=== PATIENT | male | born 1945 | race Hispanic/Latino ===

== ENCOUNTER 2016-10-07 19:03 | Emergency (ER) | payer MEDICARE ==
[2016-10-07 19:11] VITALS: BMI 33.6
[2016-10-07 19:14] VITALS: RESP 18; TEMP 98.4
[2016-10-07] MEDS ORDERED: Sodium Chloride 0.9% 1,000 ML IV STA (19:32)
--- NOTE | 2016-10-07 19:33 | ED PDOC ---
Arrival/HPI <MohitMino - Last Filed: 10/07/16 20:04> - General Historian: Patient - History of Present Illness Time/Duration: < week Quality: Aching Context: Home <Jamar Watters - Last Filed: 10/15/16 21:40> - General Chief Complaint: Back Pain Time Seen by Provider: 10/07/16 19:20 - History of Present Illness Narrative History of Present Illness (Text): 10/07/16 19:30 This 70 yo male with pmh leukocytosis, renal stones, presents to this ED c/o left flank pain x 2 days. Pain radiates downwards. Denies testicular pain, sob , cp, hematuria, or abnormal gait. Denies other complains. (Jamar Watters) Past Medical History - Provider Review Nursing Documentation Reviewed: Yes - Infectious Disease Hx of Infectious Diseases: None - Tetanus Immunization Tetanus Immunization: Unknown - Cardiac Hx Cardiac Disorders: Yes Hx Hypertension: Yes - Pulmonary Hx Respiratory Disorders: No - Neurological Hx Neurological Disorder: No - Renal Hx Renal Disorder: Yes Hx Kidney Stones: Yes (LITHOTRYPSY) - Endocrine/Metabolic Hx Endocrine Disorders: No - Hematological/Oncological Hx Blood Disorders: No - Integumentary Hx Dermatological Disorder: Yes (RIGHT LEG PITTING EDEMA+1 WITH REDNESS,HOT, LEFT LEG EDEMA PITTING +2.) - Musculoskeletal/Rheumatological Hx Musculoskeletal Disorders: Yes Hx Arthritis: Yes Hx Falls: Yes Other/Comment: LEFT HIP SURGERY,RUPTURED RIGHT ACHILLES TENDON REPAIR - Gastrointestinal Hx Gastrointestinal Disorders: Yes (GASTROENTERITIS) - Genitourinary/Gynecological Hx Genitourinary Disorders: No - Psychiatric Hx Depression: No Hx Emotional Abuse: No Hx Physical Abuse: No Hx Substance Use: No - Surgical History Hx Orthopedic Surgery: Yes (L HIP, REPAIR OF RUPTURED ACHILLES TENDON) - Anesthesia Hx Anesthesia: Yes Hx Anesthesia Reactions: No Hx Malignant Hyperthermia: No - Suicidal Assessment Feels Threatened In Home Enviroment: No <Jamar Watters - Last Filed: 10/15/16 21:40> Family/Social History - Physician Review Nursing Documentation Reviewed: Yes Family/Social History: No Known Family HX Smoking Status: Former Smoker Hx Alcohol Use: Yes (SOCIALLY) Frequency of alcohol use: Socially Hx Substance Use: No Hx Substance Use Treatment: No <Jamar Watters - Last Filed: 10/15/16 21:40> Allergies/Home Meds <MohitMino - Last Filed: 10/07/16 20:04> <Jamar Watters Jovi - Last Filed: 10/15/16 21:40> Allergies/Adverse Reactions: Allergies Penicillins Allergy (Verified 03/08/16 11:44) RASH shellfish derived Adverse Reaction (Verified 03/08/16 11:44) SWELLING Home Medications: Home Meds Medication Instructions Recorded Confirmed Eplerenone [Inspra] 50 mg PO DAILY 07/19/15 10/07/16 Diltiazem HCl [Matzim LA] 420 mg PO DAILY 03/08/16 10/07/16 Telmisartan/Hydrochlorothiazid 1 tab PO DAILY 03/08/16 10/07/16 [Telmisartan-Hydrochlorothiazide 25 mg-80 mg] Cyanocobalamin/Salcaprozat Sod 1,000 mcg PO DAILY 10/07/16 10/07/16 [Eligen B12 Tablet] Folic Acid [Folic Acid] 1 tab PO DAILY 10/07/16 10/07/16 Review of Systems - Review of Systems Constitutional: Normal. absent: Fatigue, Weight Change, Fevers Eyes: Normal ENT: Normal Respiratory: Normal Cardiovascular: Normal Gastrointestinal: Abdominal Pain (flank pain) Genitourinary Male: Normal Musculoskeletal: Normal Skin: Normal Neurological: Normal Endocrine: Normal Hemo/Lymphatic: Normal Psychiatric: Normal <Jamar Watters Jovi - Last Filed: 10/15/16 21:40> Physical Exam Temperature: Afebrile Blood Pressure: Normal Pulse: Regular Respiratory Rate: Normal Appearance: Positive for: Well-Appearing, Non-Toxic, Comfortable Pain Distress: None Mental Status: Positive for: Alert and Oriented X 3 - Systems Exam Head: Present: Atraumatic, Normocephalic Pupils: Present: PERRL Extroacular Muscles: Present: EOMI Conjunctiva: Present: Normal Mouth: Present: Moist Mucous Membranes Neck: Present: Normal Range of Motion Respiratory/Chest: Present: Clear to Auscultation, Good Air Exchange. No: Respiratory Distress, Accessory Muscle Use Cardiovascular: Present: Regular Rate and Rhythm, Normal S1, S2. No: Murmurs Abdomen: Present: Normal Bowel Sounds. No: Tenderness, Distention, Peritoneal Signs, Rebound, Guarding, McBurney's Point Tender Back: Present: Normal Inspection Upper Extremity: Present: Normal Inspection, Normal ROM, Neurovascularly Intact , Capillary Refill < 2s. No: Cyanosis, Edema, NORMAL PULSES Lower Extremity: Present: Normal Inspection, Normal ROM, Neurovascularly Intact , Capillary Refill < 2 s. No: Edema Neurological: Present: GCS=15, CN II-XII Intact, Speech Normal Skin: Present: Warm, Dry, Normal Color. No: Rashes Psychiatric: Present: Alert, Oriented x 3, Normal Insight, Normal Concentration <Jamar Watters - Last Filed: 10/15/16 21:40> Vital Signs Temp Pulse Resp BP Pulse Ox 10/07/16 23:51 89 18 123/72 99 10/07/16 19:14 98.4 F 90 18 124/71 96 Medical Decision Making <Mino Rueda - Last Filed: 10/07/16 20:04> Re-evaluation Time: 23:27 Reassessment Condition: Re-examined, Improved - Lab Interpretations I have reviewed the lab results: Yes Interpretation: No clinic. lab abnormalty <Jamar Watters - Last Filed: 10/15/16 21:40> ED Course and Treatment: 10/07/16 23:18 I spoke with Jeevan Campos Urologist regarding patient c/o left flank pain. We reviewed ct scan and labs. CT scan demonstrates renal stones. I told Dr. Campos that patient prefers out-pt f/u. Patient has an appointment to see Urologist tomorrow morning. (Jamar Watters) - Lab Interpretations Microbiology Results: Microbiology Results 10/07/16 20:40 Urine,Clean Catch Urine Culture - Final No Growth (<1,000 CFU/ML) Lab Results: 10/07/16 19:55 10/07/16 19:55 Lab Results 10/07/16 20:45: Urine Color Yellow, Urine Appearance Clear, Urine pH 7.0, Ur Specific [place] 1.015, Urine Protein Negative, Urine Glucose (UA) Negative, Urine Ketones Negative, Urine Blood Trace-lysed H, Urine Nitrate Negative, Urine Bilirubin Negative, Urine Urobilinogen 0.2, Ur Leukocyte Esterase Small H , Urine RBC 1 - 3, Urine WBC 2 - 5 10/07/16 19:55: Sodium 139, Potassium 3.4 L, Chloride 100, Carbon Dioxide 27, Anion Gap 15, BUN 19, Creatinine 1.0, Est GFR ( Amer) > 60, Est GFR (Non- Af Amer) > 60, Random Glucose 90, Calcium 9.6, Total Bilirubin 0.4, AST 25, ALT 34, Alkaline Phosphatase 72, Total Protein 7.6, Albumin 4.2, Globulin 3.4, Albumin/Globulin Ratio 1.2 10/07/16 19:55: WBC 13.4 H D, RBC 4.74, Hgb 15.1, Hct 42.8, MCV 90.3, MCH 31.9, MCHC 35.3, RDW 13.0, Plt Count 271, MPV 9.7, Gran % 68.8 H, Lymph % (Auto) 18.0 L, [place] % (Auto) 9.8 H, Eos % (Auto) 2.7, Baso % (Auto) 0.7, Gran # 9.23 H, Lymph # 2.4, [place] # 1.3 H, Eos # 0.4, Baso # 0.09 - RAD Interpretation Narrative RAD Interpretations (Text): 10/07/16 22:43 [facility] Final Radiology Report Call: [phone] assistance Online chat: [email or web address] Patient Name: NELSON TORREZ I FINDINGS: Lower thorax: The bilateral lung bases are clear. ABDOMEN: Liver: No acute findings Gallbladder and bile ducts: The gallbladder is decompressed, with multiple calcified stones. No intraextrahepatic biliary ductal dilation. Pancreas: Limited evaluation secondary to the lack of intravenous contrast. Spleen: No acute findings. Adrenals: No acute findings. Kidneys and ureters: Left-sided hydronephrosis with extensive left renal calculi. The left ureter is decompressed. The right kidney and collecting system are unremarkable. PELVIS: Bladder: The bladder is moderately distended. Reproductive: No acute findings. Appendix: The appendix is not definitively visualized, however no pericecal inflammatory changes identified to suggest the presence of acute appendicitis. ABDOMEN and PELVIS: Stomach and bowel: Colonic diverticulosis, without inflammation. Peritoneum: No acute findings. Lymph nodes: Limited evaluation without intravenous contrast. Vasculature: No aortic aneurysm. Calcified atherosclerotic disease. Bones: No acute fracture. IMPRESSION: Left-sided hydronephrosis with extensive renal calculi, as detailed above. Cholelithiasis. Diverticulosis, without inflammation. Thank you for allowing us to participate in the care of your patient. Dictated and Authenticated by: Noreen Lomax MD 10/07/2016 10:33 PM Eastern Time ([place] & [place]) (Jamar Watters) Radiology Orders: 10/07/16 20:15 ABD & PELVIS W/O PO OR IV CONT [CT] Stat - Medication Orders Current Medication Orders: Discontinued Medications Sodium Chloride (Sodium Chloride 0.9%) 1,000 mls @ 999 mls/hr IV .Q1H1M STA Stop: 10/07/16 20:32 Last Admin: 10/07/16 20:18 Dose: 999 mls/hr Ketorolac Tromethamine (Toradol) 30 mg IVP STAT STA Stop: 10/07/16 19:33 Last Admin: 10/07/16 20:18 Dose: 30 mg Nitrofurantoin Macrocrystals (Macrobid) 100 mg PO STAT STA Stop: 10/07/16 23:29 Last Admin: 10/07/16 23:45 Dose: 100 mg - PA / [employer] / Resident Statement / has reviewed & agrees with the documentation as recorded. / has examined the patient and agrees with the treatment plan. <Mino Rueda - Last Filed: 10/07/16 20:04> Disposition/Present on Arrival <Mino Rueda - Last Filed: 10/07/16 20:04> - Present on Arrival Any Indicators Present on Arrival: No History of DVT/PE: No History of Uncontrolled Diabetes: No Urinary Catheter: No History of Decub. Ulcer: No History Surgical Site Infection Following: None - Disposition Have Diagnosis and Disposition been Completed?: Yes Disposition Time: 23:29 Patient Plan: Discharge <Jamar Watters - Last Filed: 10/15/16 21:40> - Disposition Diagnosis: Renal calculus Disposition: HOME/ ROUTINE Condition: GOOD Discharge Instructions (ExitCare): Kidney Stones (ED) Additional Instructions: Dr. Campos would like to see you tomorrow at 10:[address] [place] [address]. [place], [place]. Call Dr. Campos at [phone] before going to his office. Prescriptions: Nitrofurantoin Macrocrystals [Macrobid] 100 mg PO BID #20 cap oxyCODONE/Acetaminophen [Percocet 5/325 mg Tab] 1 ea PO TID PRN #12 tab PRN Reason: Pain, Severe (8-10) Referrals: Abundio Oropeza MD [Primary Care Provider] - Follow up with primary Jeevan Campos MD [Staff Provider] - Follow up with primary Forms: [employer] (Polish)
[2016-10-07 20:17] LABS: BASO # 0.09 K/mm3 (0.0-2.0); BASO % 0.7 % (0.0-3.0); EOS # 0.4 (0.0-0.7); EOS % 2.7 % (1.5-5.0); GRAN # 9.23 (1.4-6.5); GRAN % 68.8 % (50.0-68.0); HEMOGLOBIN 15.1 gm/dL (14.0-18.0); LYMPH # 2.4 (1.2-3.4); MEAN CELL VOLUME 90.3 fL (80.0-105.0); MEAN CORPUSCULAR HEMOGLOBIN 31.9 pg (25.0-35.0); MEAN CORPUSCULAR HGB CONC 35.3 g/dl (31.0-37.0); MEAN PLATELET VOLUME 9.7 fl (7.0-11.0); MONO # 1.3 (0.1-0.6); MONO % 9.8 % (1.0-6.0); PLATELET COUNT 271 10^3/uL (120.0-450.0); RBC 4.74 10^6/uL (3.5-6.1); WHITE BLOOD COUNT 13.4 10^3/ul (4.5-11.0)
[2016-10-07 20:27] LABS: ALB/GLOB RATIO 1.2 (1.1-1.8); ALBUMIN 4.2 g/dL (3.0-4.8); ALT/SGPT 34 U/L (7-56); AST/SGOT 25 U/L (15-59); BLOOD UREA NITROGEN 19 mg/dL (7-21); CALCIUM 9.6 mg/dL (8.4-10.5); GFR AFRICAN-AMERICAN > 60; GFR NON-AFRICAN AMERICAN > 60
[2016-10-07 20:55] LABS: URINE BILIRUBIN NEGATIVE (NEGATIVE); URINE BLOOD TRACE-LYSED (NEGATIVE); URINE GLUCOSE (UA) NEGATIVE (NEGATIVE); URINE LEUKOCYTE ESTERASE SMALL Leu/uL (NEGATIVE); URINE NITRATE NEGATIVE (NEGATIVE); URINE PROTEIN NEGATIVE mg/dL (<30 mg/dL); URINE UROBILINOGEN 0.2 E.U./dL (<1 E.U./dL)
[2016-10-07 21:02] LABS: URINE APPEARANCE CLEAR (CLEAR); URINE COLOR YELLOW (YELLOW)
--- NOTE | 2016-10-07 22:34 | CT ---
EXAM: CT Abdomen and Pelvis Without Intravenous Contrast CLINICAL HISTORY: 70 years old, male; Pain; Abdominal pain; Acute; Additional info: Left flank pain TECHNIQUE: Axial computed tomography images of the abdomen and pelvis without intravenous contrast. This CT exam was performed using one or more of the following dose reduction techniques: automated exposure control, adjustment of the mA and/or kV according to patient size, and/or use of iterative reconstruction technique. Coronal and sagittal reformatted images were created and reviewed. COMPARISON: No relevant prior studies available. FINDINGS: Lower thorax: The bilateral lung bases are clear. ABDOMEN: Liver: No acute findings Gallbladder and bile ducts: The gallbladder is decompressed, with multiple calcified stones. No intra-extrahepatic biliary ductal dilation. Pancreas: Limited evaluation secondary to the lack of intravenous contrast. Spleen: No acute findings. Adrenals: No acute findings. Kidneys and ureters: Left-sided hydronephrosis with extensive left renal calculi. The left ureter is decompressed. The right kidney and collecting system are unremarkable. PELVIS: Bladder: The bladder is moderately distended. Reproductive: No acute findings. Appendix: The appendix is not definitively visualized, however no pericecal inflammatory changes identified to suggest the presence of acute appendicitis. ABDOMEN and PELVIS: Stomach and bowel: Colonic diverticulosis, without inflammation. Peritoneum: No acute findings. Lymph nodes: Limited evaluation without intravenous contrast. Vasculature: No aortic aneurysm. Calcified atherosclerotic disease. Bones: No acute fracture. IMPRESSION: Left-sided hydronephrosis with extensive renal calculi, as detailed above. Cholelithiasis. Diverticulosis, without inflammation.
[2016-10-07 23:52] VITALS: BP 123/72; PULSE 89; O2SAT 99
== END 2016-10-07 23:51 | disposition home or self-care (01) ==
LOC: ED 19:03
DX: N20.0 Calculus of kidney (principal)
CPT/HCPCS: 74176; 80053; 81001; 85025; 87086; 96374; 99283; J1885; J7040

== ENCOUNTER 2018-04-16 14:06 | Outpatient (CLI) | payer MEDICARE | END 2018-04-16 14:07 | disposition home or self-care (01) | LOC: CARDIO 14:06 ==

== ENCOUNTER 2018-04-20 03:38 | Emergency (ER) | payer MEDICARE ==
[2018-04-20 04:04] VITALS: BMI 32.5
--- NOTE | 2018-04-20 04:14 | ED PDOC ---
Arrival/HPI - General Time Seen by Provider: 04/20/18 03:43 Historian: Patient - History of Present Illness Narrative History of Present Illness (Text): 04/20/18 04:11 72 year old male, whose past medical history includes leukocytosis, kidney stones, and Hypertension, presents to the emergency department for evaluation of trembling legs. Patient informs having had a procedure one day prior for kidney stones, for which he had taken Levaquin and flomax. Patient states he woke up to use the bathroom and his legs began to shake and tremble. Patient states he was unable to stop them from shaking. Patient denies any fevers, chills, headache, dizziness, chest pain, shortness of breath, cough, abdominal pain, nausea, vomiting, diarrhea, back pain, neck pain, or any other complaint. Currently while in ED, shaking has stopped and patient feels better. Time/Duration: Prior to Arrival Symptom Onset: Sudden Symptom Course: Unchanged Severity Level: 1 Activities at Onset: Light Context: Home Past Medical History - Provider Review Nursing Documentation Reviewed: Yes - Infectious Disease Hx of Infectious Diseases: None - Tetanus Immunization Tetanus Immunization: Unknown - Cardiac Hx Cardiac Disorders: Yes Hx Hypertension: Yes - Pulmonary Hx Respiratory Disorders: No - Neurological Hx Neurological Disorder: No - Renal Hx Renal Disorder: Yes Hx Kidney Stones: Yes (LITHOTRYPSY) - Endocrine/Metabolic Hx Endocrine Disorders: No - Hematological/Oncological Hx Blood Disorders: No - Integumentary Hx Dermatological Disorder: Yes (RIGHT LEG PITTING EDEMA+1 WITH REDNESS,HOT,LEFT LEG EDEMA PITTING +2.) - Musculoskeletal/Rheumatological Hx Musculoskeletal Disorders: Yes Hx Arthritis: Yes Hx Falls: Yes Other/Comment: LEFT HIP SURGERY,RUPTURED RIGHT ACHILLES TENDON REPAIR - Gastrointestinal Hx Gastrointestinal Disorders: Yes (GASTROENTERITIS) - Genitourinary/Gynecological Hx Genitourinary Disorders: No - Psychiatric Hx Depression: No Hx Emotional Abuse: No Hx Physical Abuse: No Hx Substance Use: No - Surgical History Hx Orthopedic Surgery: Yes (L HIP, REPAIR OF RUPTURED ACHILLES TENDON) - Anesthesia Hx Anesthesia: Yes Hx Anesthesia Reactions: No Hx Malignant Hyperthermia: No - Suicidal Assessment Feels Threatened In Home Enviroment: No Family/Social History - Physician Review Nursing Documentation Reviewed: Yes Family/Social History: No Known Family HX Smoking Status: Former Smoker Hx Alcohol Use: Yes (SOCIALLY) Hx Substance Use: No Hx Substance Use Treatment: No Allergies/Home Meds Allergies/Adverse Reactions: Allergies Penicillins Allergy (Verified 03/08/16 11:44) RASH shellfish derived Adverse Reaction (Verified 03/08/16 11:44) SWELLING Home Medications: Home Meds Medication Instructions Recorded Confirmed Eplerenone [Inspra] 50 mg PO DAILY 07/19/15 04/20/18 Diltiazem HCl [Matzim LA] 420 mg PO DAILY 03/08/16 04/20/18 Telmisartan/Hydrochlorothiazid 1 tab PO DAILY 03/08/16 04/20/18 [Telmisartan-Hydrochlorothiazide 25 mg-80 mg] Cyanocobalamin/Salcaprozat Sod 1,000 mcg PO DAILY 10/07/16 04/20/18 [Eligen B12 Tablet] Folic Acid 1 tab PO DAILY 10/07/16 04/20/18 Levofloxacin [Levaquin] 750 mg PO DAILY 04/20/18 04/20/18 Review of Systems - Physician Review All systems were reviewed & negative as marked: Yes - Review of Systems Constitutional: absent: Fevers Neurological: absent: Headache Physical Exam - Physical Exam Narrative Physical Exam (Text): 04/20/18 04:15 Constitutional: No acute distress. Head: Normocephalic. Atraumatic. Eyes: PERRL. ENT: Moist mucous membranes. Neck: Supple. Cardiovascular: Regular rate. Chest: No tenderness. Respiratory: Clear to auscultation bilaterally. GI: Soft. Nontender. Nondistended. Back: No CVA tenderness. Musculoskeletal: No tenderness or swelling of extremities. Skin: No rash. Neurologic: Alert, no focal deficit. Vital Signs Reviewed: Yes Vital Signs Temp Pulse Resp BP Pulse Ox 04/20/18 04:00 98.0 F 92 H 18 132/86 95 Temperature: Afebrile Blood Pressure: Normal Pulse: Regular Respiratory Rate: Normal Appearance: Positive for: Well-Appearing, Non-Toxic, Comfortable Pain Distress: None Mental Status: Positive for: Alert and Oriented X 3 Medical Decision Making ED Course and Treatment: 04/20/18 04:17 Impression: 72 year old male presents with trembling legs Plan: -- CMP -- Creatine -- Mg, Ph -- CBC -- Reassess and disposition Prior Visits: Notes and results from previous visits were reviewed. Progress Notes: Labs unremarkable. Leukocytosis, which patient has at baseline and is followed by Dr. Ward for. Discharged home, f/u PMD, return to ED for worsening pain, fever, dyspnea, vomiting, or any other problem. - Scribe Statement The provider has reviewed the documentation as recorded by the Scribe Adam Hernandez Provider Scribe Attestation: All medical record entries made by the Scribe were at my direction and personally dictated by me. I have reviewed the chart and agree that the record accurately reflects my personal performance of the history, physical exam, medical decision making, and the department course for this patient. I have also personally directed, reviewed, and agree with the discharge instructions and disposition. Disposition/Present on Arrival - Present on Arrival Any Indicators Present on Arrival: No History of DVT/PE: No History of Uncontrolled Diabetes: No Urinary Catheter: No History Surgical Site Infection Following: None - Disposition Have Diagnosis and Disposition been Completed?: Yes Diagnosis: Shaking Disposition: HOME/ ROUTINE Disposition Time: 06:15 Patient Plan: Discharge Condition: STABLE Referrals: Kelsey Ward MD [Primary Care Provider] - Follow up with primary Jeevan Campos MD [Staff Provider] - Follow up with primary
[2018-04-20 05:13] LABS: BASO # 0.01 K/mm3 (0.0-2.0); BASO % 0.1 % (0.0-3.0); GRAN # 16.25 (1.4-6.5); GRAN % 91.8 % (50.0-68.0); LYMPH # 0.7 (1.2-3.4); MEAN CORPUSCULAR HEMOGLOBIN 31.1 pg (25.0-35.0); MEAN CORPUSCULAR HGB CONC 34.6 g/dl (31.0-37.0); MEAN PLATELET VOLUME 9.4 fl (7.0-11.0); MONO # 0.7 (0.1-0.6); MONO % 4.1 % (1.0-6.0); PLATELET COUNT 305 10^3/uL (120.0-450.0); RBC 4.82 10^6/uL (3.5-6.1); RED CELL DISTRIBUTION WIDTH 13.2 % (11.5-14.5); WHITE BLOOD COUNT 17.7 10^3/uL (4.5-11.0)
[2018-04-20 05:31] LABS: ALB/GLOB RATIO 1.2 (1.1-1.8); ALBUMIN 4.5 g/dL (3.0-4.8); BLOOD UREA NITROGEN 19 mg/dL (7-21); CALCIUM 9.6 mg/dL (8.4-10.5); GFR NON-AFRICAN AMERICAN > 60
[2018-04-20 05:44] LABS: ALT/SGPT 51 U/L (7-56); AST/SGOT 32 U/L (17-59)
[2018-04-20 05:58] VITALS: TEMP 98.1
[2018-04-20] MEDS ORDERED: Sodium Chloride 0.9% 1,000 ML IV STA (06:00)
[2018-04-20] MEDS ORDERED: Benzocaine/Menthol (Cepacol) Lozenge MT STA (06:06)
[2018-04-20 06:29] LABS: BAND 5 % (0-2); LYMPHOCYTE 2 % (22.0-35.0); MONOCYTE 3 % (1.0-6.0); NEUTROPHIL 90 % (50.0-70.0); PLATELET ESTIMATE NORMAL (NORMAL)
[2018-04-20 06:30] LABS: TOXIC GRANULATION SLIGHT
[2018-04-20 07:17] VITALS: RESP 18
[2018-04-20 08:26] VITALS: BP 117/68; PULSE 78; O2SAT 97
== END 2018-04-20 08:19 | disposition home or self-care (01) ==
LOC: ED 03:38
DX: R25.1 Tremor, unspecified (principal); I10 Essential (primary) hypertension; Z87.442 Personal history of urinary calculi; Z87.891 Personal history of nicotine dependence; Z98.890 Other specified postprocedural states
CPT/HCPCS: 80053; 82550; 83735; 84100; 85025; 96360; 99283; J7030